=== PATIENT | female | born 1985 | race Caucasian/White ===

== ENCOUNTER 2020-05-29 23:05 | Inpatient (IN) | payer MEDICAID, OTHER ==
[~2020-05-29] VITALS: Ht 162.6 cm; Wt 78.1 kg
[~2020-05-29 23:05] MED LIST: HYDR-3240 PO; IBUP200T49 PO
[2020-05-29] MEDS ORDERED: IBUPROFEN 800 MG TABLET PO STA (23:14)
[2020-05-29] MEDS ORDERED: ACETAMINOPHEN 325 MG TABLET PO ONE (23:30)
[2020-05-29 23:42] LABS: BASOPHILS # (AUTO) 0.04 x10^3/uL (0-0.1); BASOPHILS % (AUTO) 0 % (0-1); EOSINOPHILS % (AUTO) 0 % (1-7); LYMPHOCYTES # (AUTO) 1.12 x10^3/uL (1-3.4); LYMPHOCYTES % (AUTO) 6 % (22-44); MD NO; MEAN CORPUSCULAR HEMOGLOBIN 29.8 pg (27.0-34.8); MEAN CORPUSCULAR HGB CONC 33.7 g/dL (32.4-35.8); MEAN CORPUSCULAR VOLUME 88.5 fL (80-100); MEAN PLATELET VOLUME 9.8 fL (7.4-10.4); MONOCYTES # (AUTO) 0.67 x10^3/uL (0.2-0.8); MONOCYTES % (AUTO) 4 % (2-9); NEUTROPHILS # (AUTO) 15.68 x10^3/uL (1.8-6.8); NEUTROPHILS % (AUTO) 90 % (42-75); PLATELET COUNT 221 x10^3/uL (130-400); RED BLOOD COUNT 5.09 x10^6/uL (3.82-5.3); RED CELL DISTRIBUTION WIDTH 12.5 % (9.6-15.2)
[2020-05-29] MEDS ORDERED: ACETAMINOPHEN 325 MG TABLET ONE (23:47)
[2020-05-29] MEDS ORDERED: IBUPROFEN 200 MG TABLET ONE (23:47)
[2020-05-29 23:56] LABS: ALANINE AMINOTRANSFERASE 41 U/L (12-78); ALBUMIN 4.3 g/dL (3.4-5.0); ANION GAP 6 mmol/L (5-15); CALCIUM 8.9 mg/dL (8.5-10.1); CHLORIDE 107 mmol/L (98-107); CREATININE 0.93 mg/dL (0.55-1.02)
[2020-05-29 23:58] LABS: ALKALINE PHOSPHATASE 109 U/L (45-117); BILIRUBIN,TOTAL 1.5 mg/dL (0.2-1.0); TOTAL PROTEIN 8.1 g/dL (6.4-8.2)
[2020-05-30] MEDS ORDERED: SODIUM CHLORIDE FLUSH 10ML SYR IVF ONE
[2020-05-30] MEDS ORDERED: SODIUM CHLORIDE 0.9% 1,000ML IVBOLUS ONE
[2020-05-30] MEDS ORDERED: ONDANSETRON 2MG/ML, 2ML IVPush ONE
[2020-05-30] MEDS ORDERED: CEFAZOLIN PMX 1GM/50ML 50 ML IVPB ONE
[2020-05-30] MEDS ORDERED: VANCOMYCIN PER PHARMACY MC ONE
[2020-05-30] MEDS ORDERED: MORPHINE SULFATE 4 MG/ML, 1ML IV PRN
[2020-05-30] MEDS ORDERED: CEFAZOLIN PMX 1GM/50ML 50 ML ONE (00:13)
[2020-05-30] MEDS ORDERED: VANCOMYCIN 2,000 MG in SODIUM CHLORIDE 0.9% 500 ML IV ONE ×2 (00:30→02:30)
[2020-05-30] MEDS ORDERED: morphine SULFATE 10 MG/ML, 1ML IVPush PRN (00:30)
[2020-05-30] MEDS ORDERED: ACETAMINOPHEN 325 MG TABLET PO PRN (00:30)
[2020-05-30] MEDS ORDERED: ONDANSETRON 2MG/ML, 2ML IVPush PRN (00:30)
--- NOTE | 2020-05-30 00:45 | NUR ---
REPORT TO TAMIKA CARVAJAL. HOSPITALIST AT BEDSIDE FOR EVAL. PT AWAITING TRANSPORT AT THIS TIME. CALL LIGHT IN REACH.
[2020-05-30] MEDS ORDERED: VANCOMYCIN PER PHARMACY MC PRN (01:00)
[2020-05-30 02:00] VITALS: BP 103/66
[2020-05-30] MEDS: HYDROcodone/APAP 5/325 TABLET PO PRN ×4 (02:00→21:44)
[2020-05-30] MEDS ORDERED: PHARMACOKINETIC MONITORING MC PRN (02:00)
[2020-05-30 02:01] VITALS: BP 103/66
[2020-05-30] MEDS: SODIUM CHLORIDE 0.9% 1,000 ML IV SCH ×2 (02:43→20:00)
[2020-05-30 07:08] VITALS: BP 104/67
[2020-05-30] MEDS: CEFAZOLIN PMX 1GM/50ML 50 ML IV SCH ×2 (08:32→18:31)
[2020-05-30 11:39] LABS: MEAN CORPUSCULAR HEMOGLOBIN 29.9 pg (27.0-34.8); MEAN CORPUSCULAR HGB CONC 33.2 g/dL (32.4-35.8); MEAN CORPUSCULAR VOLUME 89.9 fL (80-100); MEAN PLATELET VOLUME 9.3 fL (7.4-10.4); PLATELET COUNT 207 x10^3/uL (130-400); RED BLOOD COUNT 4.63 x10^6/uL (3.82-5.3); RED CELL DISTRIBUTION WIDTH 12.7 % (9.6-15.2)
[2020-05-30 11:54] LABS: BASOPHILS # (AUTO) 0.01 x10^3/uL (0-0.1); BASOPHILS % (AUTO) 0 % (0-1); EOSINOPHILS # (AUTO) 0.03 x10^3/uL (0-0.4); EOSINOPHILS % (AUTO) 0 % (1-7); LYMPHOCYTES # (AUTO) 1.77 x10^3/uL (1-3.4); LYMPHOCYTES % (AUTO) 11 % (22-44); MD SCAN; MONOCYTES # (AUTO) 0.95 x10^3/uL (0.2-0.8); MONOCYTES % (AUTO) 6 % (2-9); NEUTROPHILS # (AUTO) 14.17 x10^3/uL (1.8-6.8); NEUTROPHILS % (AUTO) 84 % (42-75)
[2020-05-30 12:18] VITALS: BP 108/74
[2020-05-30] MEDS: VANCOMYCIN 1,600 MG in SODIUM CHLORIDE 0.9% 250 ML IV SCH (15:11)
[2020-05-30 18:51] VITALS: BP 111/71
[2020-05-31 00:30] VITALS: BP 105/71
[2020-05-31] MEDS: CEFAZOLIN PMX 1GM/50ML 50 ML IV SCH (02:30)
[2020-05-31] MEDS: VANCOMYCIN 1,600 MG in SODIUM CHLORIDE 0.9% 250 ML IV SCH ×2 (03:18→15:55)
[2020-05-31] MEDS: HYDROcodone/APAP 5/325 TABLET PO PRN ×4 (04:09→21:15)
[2020-05-31 05:23] LABS: BASOPHILS # (AUTO) 0.02 x10^3/uL (0-0.1); BASOPHILS % (AUTO) 0 % (0-1); EOSINOPHILS # (AUTO) 0.09 x10^3/uL (0-0.4); EOSINOPHILS % (AUTO) 1 % (1-7); LYMPHOCYTES # (AUTO) 1.76 x10^3/uL (1-3.4); LYMPHOCYTES % (AUTO) 15 % (22-44); MD NO; MEAN CORPUSCULAR HGB CONC 33.3 g/dL (32.4-35.8); MEAN CORPUSCULAR VOLUME 90.2 fL (80-100); MEAN PLATELET VOLUME 9.4 fL (7.4-10.4); MONOCYTES % (AUTO) 6 % (2-9); NEUTROPHILS # (AUTO) 9.05 x10^3/uL (1.8-6.8); NEUTROPHILS % (AUTO) 78 % (42-75); PLATELET COUNT 191 x10^3/uL (130-400); RED BLOOD COUNT 4.44 x10^6/uL (3.82-5.3); RED CELL DISTRIBUTION WIDTH 12.4 % (9.6-15.2)
[2020-05-31 05:32] LABS: ANION GAP 5 mmol/L (5-15); CALCIUM 7.9 mg/dL (8.5-10.1); CHLORIDE 112 mmol/L (98-107)
[2020-05-31] MEDS: SODIUM CHLORIDE 0.9% 1,000 ML IV SCH ×3 (06:07→15:30)
[2020-05-31 07:05] VITALS: BP 111/75
[2020-05-31] MEDS: PIPERACILLIN/TAZO/PMX 3.375GM 50 ML IV SCH ×2 (08:56→17:57)
[2020-05-31] MEDS ORDERED: GADOTERATE 7.5 MMOL/15 ML SYR ONE (11:56)
[2020-05-31 14:00] VITALS: BP 115/73
[2020-05-31 15:01] LABS: HCT (SEDRATE) 37.9 % (34.6-47.8)
[2020-05-31 21:11] VITALS: BP 109/73
[2020-06-01] MEDS ORDERED: VANCOMYCIN 1,600 MG in SODIUM CHLORIDE 0.9% 250 ML IV SCH
[2020-06-01 00:19] VITALS: BP 105/70
[2020-06-01] MEDS: HYDROcodone/APAP 5/325 TABLET PO PRN ×4 (01:33→22:16)
[2020-06-01] MEDS: PIPERACILLIN/TAZO/PMX 3.375GM 50 ML IV SCH ×3 (01:44→17:26)
[2020-06-01] MEDS: SODIUM CHLORIDE 0.9% 1,000 ML IV SCH ×2 (05:00→13:09)
[2020-06-01 07:13] VITALS: BP 113/78
[2020-06-01 13:01] VITALS: BP 129/84
[2020-06-01 17:52] VITALS: BP 101/65
[2020-06-01 20:30] VITALS: BP 121/72
[2020-06-02 00:54] VITALS: BP 114/63
[2020-06-02] MEDS: PIPERACILLIN/TAZO/PMX 3.375GM 50 ML IV SCH ×2 (01:04→08:59)
[2020-06-02 05:35] LABS: BASOPHILS # (AUTO) 0.04 x10^3/uL (0-0.1); BASOPHILS % (AUTO) 0 % (0-1); EOSINOPHILS # (AUTO) 0.26 x10^3/uL (0-0.4); EOSINOPHILS % (AUTO) 3 % (1-7); LYMPHOCYTES # (AUTO) 2.28 x10^3/uL (1-3.4); LYMPHOCYTES % (AUTO) 27 % (22-44); MD NO; MEAN CORPUSCULAR HEMOGLOBIN 29.6 pg (27.0-34.8); MEAN CORPUSCULAR HGB CONC 33.3 g/dL (32.4-35.8); MEAN CORPUSCULAR VOLUME 88.7 fL (80-100); MEAN PLATELET VOLUME 9.4 fL (7.4-10.4); MONOCYTES # (AUTO) 0.61 x10^3/uL (0.2-0.8); MONOCYTES % (AUTO) 7 % (2-9); NEUTROPHILS # (AUTO) 5.33 x10^3/uL (1.8-6.8); NEUTROPHILS % (AUTO) 63 % (42-75); PLATELET COUNT 236 x10^3/uL (130-400); RED BLOOD COUNT 4.34 x10^6/uL (3.82-5.3); RED CELL DISTRIBUTION WIDTH 12.4 % (9.6-15.2)
[2020-06-02 06:34] VITALS: BP 111/73
[2020-06-02] MEDS ORDERED: CIPROFLOXACIN OPHTH SOLN 0.3%, 5ML OP SCH (09:30)
[2020-06-02] MEDS ORDERED: POLY10DR RIGHTEYE (11:08)
[2020-06-02] MEDS ORDERED: AMOX1TAB64 PO (11:08)
[2020-06-02 13:07] LABS: ANA SCREEN NEGATIVE (Negative)
== END 2020-06-02 12:46 | disposition home or self-care (01) | DRG 872 ==
LOC: ED 05-30 00:02 → EDIP 05-30 01:18 → 3N 05-30 01:40 → DCLOUNGE 06-02 12:42
PROVIDERS: ADMIT Internal Medicine; ATTEND Hospitalist
DX: A41.9 Sepsis, unspecified organism (principal); L03.114 Cellulitis of left upper limb; M65.842 Other synovitis and tenosynovitis, left hand; Z90.49 Acquired absence of other specified parts of digestive tract; Z87.891 Personal history of nicotine dependence
CPT/HCPCS: 36415; 80048; 80053; 80202; 83036; 83605; 84145; 84443; 85025; 85598; 85610; 85613; 85651; 85670; 85730; 85732; 86038; 86140; 86146; 86147; 86430; 87040; 87086; 93306; 99285; G0378; J0690; J2405; J2543; J3370; A9575; J2270; J7030; J7040; J7050

== ENCOUNTER 2020-06-03 23:27 | Inpatient (IN) | payer MEDICAID, OTHER ==
[~2020-06-03] VITALS: Ht 162.6 cm; Wt 81.7 kg
[~2020-06-03 23:27] MED LIST changes: +AMOX1TAB64 PO; +POLY10DR RIGHTEYE
--- NOTE | 2020-06-03 23:47 | NUR ---
THIS IS A 34Y F THAT COMES IN AFTER GETTING CALL THAT HER CULTURES CAME BACK AND SHE MAY NEED ADDITIONAL ABX. PT STS SHE WAS D/C FROM OUR FACILITY THIS MORNING. PT RESTING ON GURNEY NO NEEDS AT THIS TIME. AWAITING INFECTIOUS DISEASE MD.
--- NOTE | 2020-06-03 23:48 | NUR ---
ERP AT BEDSIDE
--- NOTE | 2020-06-04 | NUR ---
INFECTIOUS DISEASE PAGED.
--- NOTE | 2020-06-04 00:40 | NUR ---
PT RESTING ON GURNEY NO NEEDS AT THIS TIME
[2020-06-04] MEDS ORDERED: CEFTRIAXONE PMX 1GM/50ML 50 ML ONE (01:42)
--- NOTE | 2020-06-04 01:47 | NUR ---
PIV PLACED BY TAMIKA AGUILA. IVF ABX STARTED BY THIS RN. TOLERATING WELL
[2020-06-04] MEDS ORDERED: CEFTRIAXONE PMX 1GM/50ML 50 ML IV ONE (02:00)
--- NOTE | 2020-06-04 02:20 | NUR ---
REPORT TO FLOOR RN, ALL QUESTIONS ADDRESSED PT READY FOR TRANSPORT TO ROOM 358 AT THIS TIME
[2020-06-04 02:30] VITALS: BP 138/86
[2020-06-04] MEDS ORDERED: ZOLPIDEM 5MG TABLET PO PRN (05:30)
[2020-06-04] MEDS ORDERED: CEFTRIAXONE PMX 2GM/50ML 50 ML IV SCH (05:30)
[2020-06-04] MEDS ORDERED: METHOCARBAMOL 500 MG TABLET PO PRN (05:30)
[2020-06-04] MEDS ORDERED: ACETAMINOPHEN 325 MG TABLET PO PRN (05:30)
[2020-06-04] MEDS ORDERED: GUAIFENESIN/DM 200-20MG, 10ML UDC PO PRN (05:30)
[2020-06-04] MEDS ORDERED: DOCUSATE 100 MG CAPSULE PO PRN (05:30)
[2020-06-04] MEDS ORDERED: morphine SULFATE 10 MG/ML, 1ML IVPush PRN (05:30)
[2020-06-04] MEDS ORDERED: ONDANSETRON 2MG/ML, 2ML IVPush PRN (05:30)
[2020-06-04] MEDS ORDERED: HYDROcodone/APAP 5/325 TABLET PO PRN (05:30)
[2020-06-04] MEDS ORDERED: ASA/APAP/ CAFFEINE TABLET PO PRN (05:30)
[2020-06-04] MEDS ORDERED: ENOXAPARIN 40 MG/0.4 ML SQ SCH (05:30)
[2020-06-04] MEDS ORDERED: hydrALAzine 20 MG/ML, 1ML IVPush PRN (05:30)
[2020-06-04] MEDS ORDERED: AZITHROMYCIN 500 MG TABLET PO ONE (08:00)
[2020-06-04] MEDS ORDERED: FAMOTIDINE 20 MG TABLET PO SCH (09:00)
== END 2020-06-04 07:45 | disposition left against medical advice (07) | DRG 872 ==
LOC: ED 06-04 00:26 → EDIP 06-04 02:02 → 3N 06-04 02:26
PROVIDERS: ADMIT Internal Medicine; ATTEND Internal Medicine
DX: A54.86 Gonococcal sepsis (principal); A54.31 Gonococcal conjunctivitis; L03.114 Cellulitis of left upper limb; A54 Gonococcal infection; E66.9 Obesity, unspecified; F12.90 Cannabis use, unspecified, uncomplicated; M65.9 Synovitis and tenosynovitis, unspecified; H10.9 Unspecified conjunctivitis; Z68.30 Body mass index [BMI] 30.0-30.9, adult
CPT/HCPCS: G0378; J0696